=== PATIENT | male | born 1960 | race Caucasian/White ===

== ENCOUNTER → 2019-03-04 | Outpatient (CLI) | payer OTHER ==
--- NOTE | 2019-03-04 14:30 | RAD ---
EXAM DESCRIPTION: KUB: CR/DR/XR CLINICAL HISTORY: 58 years Male Blood in urine COMPARISON: None. TECHNIQUE: 1 view. AP supine. FINDINGS: Evaluation of the kidneys is limited due to overlying bowel gas. No definitive stones overlying the urinary tracts. Included bowel gas pattern is nonspecific. Hypertrophic bilateral acetabula abutting the joint spaces. Spondylosis L5-S1.. IMPRESSION: No definite radiodense stones overlying the urinary tracts. Limited by bowel gas distribution. If flank pain develops, consider noncontrast CT scan abdomen and pelvis. Electronically signed by: Refugio Martinez MD 03/04/2019 2:28 PM CDT
== END ==
LOC: YCFC.O 09:00
PROVIDERS: ATTEND Nurse Practitioner
DX: R31.9 Hematuria, unspecified (principal)

== ENCOUNTER → 2019-06-03 | Outpatient (CLI) | payer OTHER | LOC: LAB.O 17:06 | PROVIDERS: ATTEND Nurse Practitioner | DX: E11.65 Type 2 diabetes mellitus with hyperglycemia (principal); D69.6 Thrombocytopenia, unspecified ==